=== PATIENT | female | born 1970 | race Caucasian/White ===

== ENCOUNTER → 2019-08-10 10:49 | Outpatient (BNVA) | payer MEDICAID, SELFPAY | PROVIDERS: Family Provider Family Medicine; PCP Family Medicine; Visit Provider Emergency Medicine | DX: E03.9 Hypothyroidism, unspecified (principal); M54.2 Cervicalgia; S09.90XA Unspecified injury of head, initial encounter; G44.329 Chronic post-traumatic headache, not intractable; S19.80XA Other specified injuries of unspecified part of neck, initial encounter; G89.29 Other chronic pain | CPT/HCPCS: 84443 ==

== ENCOUNTER 2019-08-15 10:54 | Emergency (ER) | payer MEDICAID, SELFPAY ==
[2019-08-15 11:51] VITALS: BP 123/77; PULSE 89; RESP 16; TEMP 36.5; O2SAT 96; BMI 25.2
--- NOTE | 2019-08-15 13:37 | PC.PHAR ---
pt states she is not taking montelukast or trazodone but the pharmacy filled on 08/12/2019.
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
[2019-08-15 14:54] VITALS: BP 129/72; PULSE 75; RESP 17; O2SAT 96
== END 2019-08-15 15:01 | disposition home or self-care (01) ==
PROVIDERS: Emergency Provider Physician Assistant; Family Provider Family Medicine; PCP Family Medicine
DX: M54.2 Cervicalgia (principal); G89.29 Other chronic pain; E03.9 Hypothyroidism, unspecified; F17.210 Nicotine dependence, cigarettes, uncomplicated; R40.2412 Glasgow coma scale score 13-15, at arrival to emergency department
CPT/HCPCS: 72040; 99281; 99282

== ENCOUNTER 2019-08-22 12:47 | Outpatient (CLI) | payer MEDICAID, SELFPAY ==
--- NOTE | 2019-08-22 13:00 | CT_ITS ---
WS: [id number] CT HEAD TECHNIQUE: Noncontrast CT of the head obtained from the skullbase to the vertex. CLINICAL INFORMATION: head trauma COMPARISON: None. DLP: 992.[address] scans at [facility] use at least one of these dose optimization techniques: automat ed exposure control; mA and/or kV adjustment per patient size (includes targeted exams where dose is matched to clinical indication); or iterative reconstruction. FINDINGS: No evidence of intracranial hemorrhage or mass effect. Ventricular system and basal cisterns are harris nt. No extra-axial fluid collections. No evidence of mass or mass effect. Normal latham-white different iation. Mild mucosal thickening paranasal sinuses. Mastoid air cells well aerated. CT/CT head wo con* [id number] IMPRESSION: 1. No evidence of intracranial hemorrhage or mass effect. 2. Normal latham-white differentiation. 3. Mild mucosal thickening with partial opacification of the ethmoid air cells . Mucosal thickening right sphenoid sinus.
--- NOTE | 2019-08-22 13:15 | CT_ITS ---
WS: [id number] CT CERVICAL SPINE TECHNIQUE: Noncontrast CT of the cervical spine with coronal and sagittal reformatted images. CLINICAL INFORMATION: neck pain and headaches COMPARISON: None. DLP: 1262.[address] scans at [facility] use at least one of these dose optimization techniques: automat ed exposure control; mA and/or kV adjustment per patient size (includes targeted exams where dose is matched to clinical indication); or iterative reconstruction. FINDINGS: Straightening of the normal cervical lordosis. Moderate spondylitic changes. Disc osteophyte complexe s worse at C5-C7 with endplate ridging. No visualized fractures. C2-C3: Mild osteophytic ridging. Mild left and no significant right foraminal narrowing. Mild facet a rthropathy. C3-C4: Mild facet arthropathy. Spinal canal and foramen are patent. C4-C5: Mild disc osteophyte complex with endplate ridging. Mild left and no significant right foramin al narrowing. Mild facet arthropathy. Spinal canal is patent. C5-C6: Disc osteophyte complex with endplate ridging. Moderate central canal stenosis. Severe left an d moderate right bony foraminal narrowing. Mild facet arthropathy. C6-C7: Disc osteophyte complex with endplate ridging. Severe left and mild right bony foraminal narro wing. Moderate central canal stenosis. C7-T1: No significant disc bulging. Spinal canal and foramen are patent. Visualized posterior nasopharynx: Normal. Prevertebral soft tissues: Normal. CT/CT cervical spin wo con* [id number] IMPRESSION: 1. Straightening of the normal cervical lordosis with mild spondylitic changes . Disc osteophyte ridging at C5-C7. 2. No acute fractures. 3. Mild to moderate central canal stenosis C5-C6 and C6-C7 due to disc osteoph yte complexes. 4. Severe left C5-C6 and left C6-C7 bony foraminal narrowing.
== END 2019-08-22 12:48 | disposition home or self-care (01) ==
LOC: RADWPI 12:52
PROVIDERS: Family Provider Family Medicine; PCP Family Medicine; Visit Provider Emergency Medicine
DX: G44.329 Chronic post-traumatic headache, not intractable (principal); S09.90XA Unspecified injury of head, initial encounter; X58.XXXA Exposure to other specified factors, initial encounter; M54.2 Cervicalgia; M48.02 Spinal stenosis, cervical region
CPT/HCPCS: 70450; 72125

== ENCOUNTER → 2019-08-31 09:56 | Outpatient (BNVA) | payer MEDICAID, SELFPAY | PROVIDERS: Family Provider Family Medicine; PCP Family Medicine; Visit Provider Otolaryngology | DX: J34.2 Deviated nasal septum (principal); J34.3 Hypertrophy of nasal turbinates; J32.9 Chronic sinusitis, unspecified; R51 Headache; F17.210 Nicotine dependence, cigarettes, uncomplicated | CPT/HCPCS: 99203; 99214 ==

== ENCOUNTER → 2019-09-12 10:05 | Outpatient (BNVA) | payer MEDICAID, SELFPAY | PROVIDERS: Family Provider Family Medicine; PCP Family Medicine; Visit Provider Nurse Practitioner Psychiatric/Mental Health | DX: F31.5 Bipolar disorder, current episode depressed, severe, with psychotic features (principal); F43.12 Post-traumatic stress disorder, chronic; F41.1 Generalized anxiety disorder; F12.20 Cannabis dependence, uncomplicated; F17.210 Nicotine dependence, cigarettes, uncomplicated | CPT/HCPCS: 99214 ==

== ENCOUNTER → 2019-11-29 10:44 | Outpatient (BNVA) | payer MEDICAID, SELFPAY | PROVIDERS: Family Provider Family Medicine; PCP Family Medicine; Visit Provider Family Medicine | DX: E03.9 Hypothyroidism, unspecified (principal); N95.1 Menopausal and female climacteric states; F31.5 Bipolar disorder, current episode depressed, severe, with psychotic features; Z13.220 Encounter for screening for lipoid disorders; Z13.6 Encounter for screening for cardiovascular disorders | CPT/HCPCS: 80053; 80061; 83001; 83002; 84439; 84443; 84481; 85025 ==

== ENCOUNTER 2020-01-10 07:57 | Outpatient (CLI) | payer MEDICAID, SELFPAY ==
--- NOTE | 2020-01-10 13:42 | PFTS_ITS ---
Date of Study:01/10/20 Date of Dictation: MECHANICS: Forced vital capacity (FVC) is reduced. Forced expiratory volume in one second (FEV1) is reduced. FEV1/FVC is reduced. FLOW VOLUME LOOP: Reduced flow at all lung volumes with scooping. LUNG VOLUMES: Total lung capacity and residual volume are not measured. DIFFUSING CAPACITY FOR CARBON MONOXIDE: Normal. INTERPRETATION: The pulmonary function tests are consistent with severe obstruction. Component of restriction cannot be ruled out in the absence of lung volume measurements. Gas exchange (DLCO) is normal. MTDD
== END 2020-01-10 07:58 | disposition home or self-care (01) ==
PROVIDERS: PCP Family Medicine; Visit Provider Internal Medicine Critical Care Medicine
DX: J44.9 Chronic obstructive pulmonary disease, unspecified (principal)
CPT/HCPCS: 94060; 94726; 94729; J7611

== ENCOUNTER 2020-01-24 07:50 | Outpatient (CLI) | payer MEDICAID, SELFPAY ==
--- NOTE | 2020-01-24 08:15 | XR_ITS ---
WS: [id number] CERVICAL SPINE FLEXION EXTENSION TECHNIQUE: 3 views of the cervical spine: lateral neutral, flexion and extension views. CLINICAL INFORMATION: Neck pain COMPARISON: None. FINDINGS: Straightening of the normal cervical lordosis. Mild spondylitic changes. Normal C1-C2 articulation. D isc space narrowing worse at C5-C6 and C6-C7. No significant instability on flexion/extension. Livestock Trucker ior elements are normal. No other significant findings. XR/XR cervical spine fl/ex [id number] IMPRESSION: Mild spondylitic changes. No significant instability on flexion-extension
--- NOTE | 2020-01-24 08:45 | MR_ITS ---
WS: [id number] MRI CERVICAL SPINE NONCONTRAST TECHNIQUE: Sagittal T1, T2 and STIR imaging. Axial T2, gradient, and fiesta imaging. CLINICAL INFORMATION: Neck pain COMPARISON: CT August 22, 2019 FINDINGS: Straightening of the normal cervical lordosis. Disc osteophyte complexes worse at C4-C6. Cord signal is normal. Slight retrolisthesis C4 on C5 and C5 on C6. C2-C3: Mild left foraminal narrowing. Spinal canal and right foramen are patent. Mild facet arthropat hy. C3-C4: No significant disc bulging. Mild facet arthropathy. Spinal canal and foramen are patent. C4-C5: Disc osteophyte complex eccentric to the left with a shallow left pericentral protrusion. Mild central canal stenosis with slight contact of the cervical cord. Mild to moderate left foraminal mark rowing. Mild facet arthropathy. C5-C6: Disc osteophyte complex with endplate ridging. Mild to moderate central canal stenosis and sli ght contact of the cervical cord. Moderate left greater than right bony foraminal narrowing. C6-C7: Slight retrolisthesis. Disc osteophyte complex with moderate central canal stenosis and imping ement on the cervical cord. Moderate to severe bilateral bony foraminal narrowing. C7-T1: Mild left and no significant right foraminal narrowing. Spinal canal is patent. T1-T2: Normal. Visualized brain stem structures: Normal. Prevertebral soft tissues: Normal. MR/MR cervical spin wo con* [id number] IMPRESSION: 1. Straightening of the normal cervical lordosis with slight retrolisthesis C4 on C5 C5 on C6 and C6 on C7. 2. Mild central canal stenosis C4-C5, mild to moderate C5-C6, and moderate at C6-C7 with indentation and slight flattening of the cervical cord at C6-C7. Cor d signal remains normal. 3. Multilevel moderate to severe bony foraminal narrowing worse at bilateral C 5-6 worse in the left and bilateral C6-7. 4. Mild to moderate left C4-5 bony foraminal narrowing.
== END 2020-01-24 07:51 | disposition home or self-care (01) ==
LOC: RADWPI 07:53
PROVIDERS: Family Provider Family Medicine; PCP Family Medicine; Visit Provider Licensed Practical Nurse
DX: M54.2 Cervicalgia (principal); M48.02 Spinal stenosis, cervical region; M47.892 Other spondylosis, cervical region
CPT/HCPCS: 72040; 72141

== ENCOUNTER → 2020-01-29 08:01 | Outpatient (BNVA) | payer MEDICAID, SELFPAY | PROVIDERS: Family Provider Family Medicine; PCP Family Medicine; Visit Provider Licensed Practical Nurse | DX: M50.020 Cervical disc disorder with myelopathy, mid-cervical region, unspecified level (principal); G89.29 Other chronic pain; M48.02 Spinal stenosis, cervical region; M43.10 Spondylolisthesis, site unspecified; M54.2 Cervicalgia; F17.210 Nicotine dependence, cigarettes, uncomplicated | CPT/HCPCS: 99213 ==

== ENCOUNTER 2020-02-05 08:14 | Outpatient (RCR) | payer MEDICAID, SELFPAY | END 2020-02-18 23:59 | disposition home or self-care (01) | LOC: MPT 08:14 | PROVIDERS: Family Provider Family Medicine; PCP Family Medicine; Referring Provider Licensed Practical Nurse; Visit Provider Licensed Practical Nurse | DX: G89.29 Other chronic pain (principal); M54.2 Cervicalgia | CPT/HCPCS: 97110; 97161; 97530 ==

== ENCOUNTER → 2020-02-13 08:37 | Outpatient (BNVA) | payer MEDICAID, SELFPAY | PROVIDERS: Family Provider Family Medicine; PCP Family Medicine; Referring Provider Licensed Practical Nurse; Visit Provider Anesthesiology Pain Medicine | DX: M79.18 Myalgia, other site (principal); M51.17 Intervertebral disc disorders with radiculopathy, lumbosacral region; G89.29 Other chronic pain; M48.02 Spinal stenosis, cervical region; M50.020 Cervical disc disorder with myelopathy, mid-cervical region, unspecified level; M47.812 Spondylosis without myelopathy or radiculopathy, cervical region; F17.210 Nicotine dependence, cigarettes, uncomplicated | CPT/HCPCS: 20553; 99205; J1030; J3490 ==

== ENCOUNTER 2020-02-19 06:00 | Outpatient (RCR) | payer MEDICAID, SELFPAY | END 2020-03-19 23:59 | disposition home or self-care (01) | LOC: MPT 06:00 | PROVIDERS: PCP Family Medicine; Referring Provider Licensed Practical Nurse; Visit Provider Licensed Practical Nurse | DX: G89.29 Other chronic pain (principal); M54.2 Cervicalgia | CPT/HCPCS: 97110; 97530 ==

== ENCOUNTER → 2020-03-18 10:07 | Outpatient (BNVA) | payer MEDICAID, SELFPAY | PROVIDERS: PCP Family Medicine; Visit Provider Nurse Practitioner Family | DX: R53.83 Other fatigue (principal); N92.6 Irregular menstruation, unspecified | CPT/HCPCS: 81025; 84443 ==

== ENCOUNTER 2020-03-20 06:00 | Outpatient (RCR) | payer MEDICAID, SELFPAY | END 2020-04-19 23:59 | disposition home or self-care (01) | LOC: MPT 06:00 | PROVIDERS: PCP Family Medicine; Referring Provider Licensed Practical Nurse; Visit Provider Licensed Practical Nurse | DX: M54.2 Cervicalgia (principal); G89.29 Other chronic pain | CPT/HCPCS: 97110; 97530 ==

== ENCOUNTER → 2020-03-26 11:02 | Outpatient (BNVA) | payer MEDICAID, SELFPAY | PROVIDERS: PCP Family Medicine; Visit Provider Licensed Practical Nurse | DX: M48.02 Spinal stenosis, cervical region (principal); M50.020 Cervical disc disorder with myelopathy, mid-cervical region, unspecified level; M43.10 Spondylolisthesis, site unspecified | CPT/HCPCS: 99213 ==

== ENCOUNTER 2020-04-20 06:00 | Outpatient (RCR) | payer MEDICAID, SELFPAY | END 2020-05-19 23:59 | disposition home or self-care (01) | LOC: MPT 06:00 | PROVIDERS: PCP Family Medicine; Referring Provider Licensed Practical Nurse; Visit Provider Licensed Practical Nurse | DX: M54.2 Cervicalgia (principal); G89.29 Other chronic pain | CPT/HCPCS: 97110; 97530 ==

== ENCOUNTER → 2020-06-16 14:15 | Outpatient (BNVA) | payer MEDICAID, SELFPAY | PROVIDERS: PCP Family Medicine; Visit Provider Family Medicine | DX: M48.02 Spinal stenosis, cervical region (principal); E03.9 Hypothyroidism, unspecified; R00.0 Tachycardia, unspecified; G47.10 Hypersomnia, unspecified; G47.01 Insomnia due to medical condition; N95.1 Menopausal and female climacteric states; J32.9 Chronic sinusitis, unspecified; F41.1 Generalized anxiety disorder; G99.2 Myelopathy in diseases classified elsewhere; Z12.31 Encounter for screening mammogram for malignant neoplasm of breast; N64.4 Mastodynia; R59.0 Localized enlarged lymph nodes | CPT/HCPCS: 80053; 83735; 84439; 84443; 84481; 85025 ==

== ENCOUNTER 2020-07-15 20:00 | Outpatient (CLI) | payer MEDICAID, SELFPAY | END 2020-07-15 20:01 | disposition home or self-care (01) | LOC: SLEEP 07-16 11:05 | PROVIDERS: PCP Family Medicine; Visit Provider Family Medicine | DX: G47.10 Hypersomnia, unspecified (principal); R06.83 Snoring | CPT/HCPCS: 95810 ==

== ENCOUNTER → 2020-10-01 15:04 | Outpatient (BNVA) | payer MEDICAID, SELFPAY | PROVIDERS: PCP Family Medicine; Visit Provider Family Medicine | DX: R00.0 Tachycardia, unspecified (principal); R25.2 Cramp and spasm; F17.210 Nicotine dependence, cigarettes, uncomplicated; F41.1 Generalized anxiety disorder; E03.9 Hypothyroidism, unspecified; M48.02 Spinal stenosis, cervical region; J32.9 Chronic sinusitis, unspecified; B96.89 Other specified bacterial agents as the cause of diseases classified elsewhere; F31.5 Bipolar disorder, current episode depressed, severe, with psychotic features; G47.01 Insomnia due to medical condition; L30.1 Dyshidrosis [pompholyx]; R53.83 Other fatigue; J44.9 Chronic obstructive pulmonary disease, unspecified; M47.12 Other spondylosis with myelopathy, cervical region; M47.22 Other spondylosis with radiculopathy, cervical region | CPT/HCPCS: 80053; 82607; 82652; 83735; 84439; 84443; 84481; 85025 ==

== ENCOUNTER → 2021-04-01 10:41 | Outpatient (BNVA) | payer MEDICAID, SELFPAY | PROVIDERS: PCP Family Medicine; Visit Provider Family Medicine | DX: F41.1 Generalized anxiety disorder (principal); M47.12 Other spondylosis with myelopathy, cervical region; M47.22 Other spondylosis with radiculopathy, cervical region; M48.02 Spinal stenosis, cervical region; G89.29 Other chronic pain; E03.9 Hypothyroidism, unspecified; R42 Dizziness and giddiness; F17.210 Nicotine dependence, cigarettes, uncomplicated | CPT/HCPCS: 84439; 84443; 84481 ==

== ENCOUNTER 2021-04-23 11:38 | Emergency (ER) | payer MEDICAID, SELFPAY ==
[2021-04-23 11:47] VITALS: BP 145/80; PULSE 83; RESP 16; TEMP 36.7; O2SAT 97
--- NOTE | 2021-04-23 11:53 | W.ED.BACK ---
HPI - Back Pain/Injury General: Chief Complaint: Back Pain/Injury Stated Complaint: SEVERE PAIN IN NECK/HEAD Time Seen by Provider: 04/23/21 11:53 History of Present Illness: HPI Narrative: 50 yo female presents emergency room with complaint of head and neck pain. She had an MRI a year ago opted not to do surgery there is some foraminal stenosis at C5 667 according to the old notes. She had some moderate central canal stenosis. Most of her pain now is radiating up her neck and into the base of her skull. She does report some occasional numbness and tingling into her hands. She takes gabapentin that makes the radiating pain better. Patient was verbally aggressive on arrival here with the triage staff demanding pain medication she had calm down some of the time had seen her and were able to have a normal conversation reviewing her history. She is scheduled next week to see Dr. Promise herbert for reevaluation has not had any imaging since imaging last year. Difficulty with gait or walking no weakness in the lower extremities. [facility] ED PFSH: Medical History Bipolar I disorder, moderate, current or most recent episode depressed, with psychotic features Cannabis dependence, continuous Cervical disc disorder with myelopathy of mid-cervical region Chronic neck pain Chronic post-traumatic stress disorder Chronic sinusitis Deviated septum Generalized anxiety disorder Head pain, chronic Headache Hypothyroidism (acquired) Nasal turbinate hypertrophy Neck pain, chronic Nicotine dependence, cigarettes, uncomplicated Spondylolisthesis, acquired Stage 2 moderate COPD by GOLD classification 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 [place], [place] Lumbar decompression S/P cholecystectomy S/P tonsillectomy Family History Father Cancer Schizophrenia Other COPD (chronic obstructive pulmonary disease) Social History Smoking and tobacco status: current every day smoker cigarettes Packs smoked per day: 0.75 Years cigarettes smoked: 25 [ Other cigarette details: 1 PPD x 25 Year Hx ] Smoking risk assessment/counseling performed?: No Alcohol intake: never Counseling given: No Counseling given: No Lives independently: Yes Household members: significant other and family Marital status: Current occupational status: unemployed History of recent travel: No Current gender identity: Female Female Reproductive History: Date of last menstrual period: 02/13/20 Spontaneous abortions: No Course Vital Signs: Vital signs: Vital Signs Temperature 98.0 F 04/23/21 11:47 Pulse Rate 83 04/23/21 11:47 Respiratory Rate 16 04/23/21 11:47 Blood Pressure 145/80 04/23/21 11:47 Pulse Oximetry 97 04/23/21 11:47 Discharge Plan Discharge Prescriptions: No Action albuterol sulfate [ProAir HFA] 90 mcg/actuation HFA aerosol inhaler 2 puff INHALATION Q6H PRNRF: 0 albuterol sulfate 2.5 mg /3 mL (0.083 %) solution for nebulization 2.5 mg INHALATION Q4H PRNRF: 0 triamcinolone acetonide 0.5 % ointment 1 applic topical BID PRN (Reason: rash) Qty: 15 RF: 2 bupropion HCl [Wellbutrin SR] 100 mg tablet sustained-release 12 hr 100 mg PO QAM 30 Days Qty: 30 RF: 2 naproxen [EC-Naproxen] 500 mg tablet,delayed release (DR/EC) 500 mg PO BID RF: 0 gabapentin 300 mg capsule 300 mg PO TID 30 Days Qty: 90 RF: 2 baclofen 20 mg tablet 20 mg PO TID 30 Days Qty: 90 RF: 0 azelastine 137 mcg (0.1 %) aerosol,spray 1 spray intranasal BID Qty: 30 RF: 3 Stiolto Respimat 2.5-2.5 mcg/actuation mist 2 puff INHALATION DAILY Qty: 4 RF: 3 levothyroxine 100 mcg tablet 100 mcg PO DAILY 90 Days Qty: 90 RF: 1 Coding Level of Care Code ED Gallery Intern for Scot Hurt
--- NOTE | 2021-04-23 12:08 | ED_ITS ---
HPI - Neck Pain/Injury General: Chief Complaint: Back Pain/Injury Stated Complaint: SEVERE PAIN IN NECK/HEAD Time Seen by Provider: 04/23/21 11:53 History of Present Illness: HPI Narrative: 50 yo female presents emergency room with complaint of head and neck pain. She had an MRI a year ago opted not to do surgery there is some foraminal stenosis at C5 667 according to the old notes. She had some moderate central canal stenosis. Most of her pain now is radiating up her neck and into the base of her skull. She does report some occasional numbness and tingling into her hands. She takes gabapentin that makes the radiating pain better. Patient was verbally aggressive on arrival here with the triage staff demanding pain medication she had calm down some of the time had seen her and were able to have a normal conversation reviewing her history. She is scheduled next week to see Dr. Promise herbert for reevaluation has not had any imaging since imaging last year. Difficulty with gait or walking no weakness in the lower extremities. Patient has not had any recent trauma or falls. No previous surgeries to her neck or spine. During course of conversation patient moves neck flexion extension side bending rotation without any noted exacerbation of pain. MD complaint: neck pain Onset (ago): month(s) Radiation: head, occiput, right upper extremity and left upper extremity Severity: severe and similar to prior neck pain Quality: sharp Duration: constant Relieving factors: none Exacerbating factors: none Associated symptoms: Denies nausea Review of Systems Const: Denies: fever(s), chills, body aches, change in appetite, fatigue or malaise ENMT: Denies: throat pain, ear or mastoid pain, nasal discharge or nasal congestion Card: Denies: chest pain, edema, dyspnea on exertion or orthopnea Resp: Denies: dyspnea, productive cough or non-productive cough GI: Denies: abdominal pain, nausea, vomiting, hematemesis, coffee ground emesis, diarrhea, constipation, bloating, hematochezia or melena : Denies: flank pain, difficulty voiding, dysuria, urinary frequency or urinary urgency Skin/Breast: Denies: rash or pruritus PFS ED PFSH: Medical History Bipolar I disorder, moderate, current or most recent episode depressed, with psychotic features Cannabis dependence, continuous Cervical disc disorder with myelopathy of mid-cervical region Chronic neck pain Chronic post-traumatic stress disorder Chronic sinusitis Deviated septum Generalized anxiety disorder Head pain, chronic Headache Hypothyroidism (acquired) Nasal turbinate hypertrophy Neck pain, chronic Nicotine dependence, cigarettes, uncomplicated Spondylolisthesis, acquired Stage 2 moderate COPD by GOLD classification 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 [place], [place] Lumbar decompression S/P cholecystectomy S/P tonsillectomy Family History Father Cancer Schizophrenia Other COPD (chronic obstructive pulmonary disease) Social History Smoking and tobacco status: current every day smoker cigarettes Packs smoked per day: 0.75 Years cigarettes smoked: 25 [ Other cigarette details: 1 PPD x 25 Year Hx ] Smoking risk assessment/counseling performed?: No Alcohol intake: never Counseling given: No Counseling given: No Lives independently: Yes Household members: significant other and family Marital status: Current occupational status: unemployed History of recent travel: No Current gender identity: Female Female Reproductive History: Date of last menstrual period: 02/13/20 Spontaneous abortions: No Physical Exam Const: COMMON NORMALS: no acute distress GENERAL APPEARANCE: cooperative and comfortable ORIENTATION/CONSCIOUSNESS: Yes awake, Yes oriented to person, Yes oriented to place and Yes oriented to time HENMT: COMMON NORMALS: normocephalic, atraumatic and hearing grossly normal bilaterally HEAD & SCALP: normocephalic and atraumatic Neck/C-Spine: COMMON NORMALS: full ROM, no lymphadenopathy and no JVD Lymph: LYMPHATIC: no lymphadenopathy noted and no lymphedema noted Resp: COMMON NORMALS: normal respiratory effort, No retractions, No use of accessory muscles and clear to auscultation bilaterally AUSCULTATION: clear to auscultation bilaterally Cardio: COMMON NORMALS: no JVD, regular rate, regular rhythm and No murmurs present (Cardio) RATE: regular rate RHYTHM: regular rhythm Extremity: COMMON NORMALS: normal to inspection, capillary refill normal, no clubbing, cyanosis or edema, no calf tenderness and no pedal edema Neuro: SENSORIUM/ORIENTATION: Yes oriented to person, Yes oriented to place and Yes oriented to time OTHER: Due to reflex to the upper extremities +2/4 biceps and triceps was 104 at the brachial radialis neurovascular intact and sensation normal. Skin: COMMON NORMALS: no rashes or lesions noted GENERAL SKIN EXAM: no rashes or lesions noted Course Vital Signs: Vital signs: Vital Signs Temperature 98.0 F 04/23/21 11:47 Pulse Rate 89 04/23/21 12:57 Respiratory Rate 18 04/23/21 12:23 Blood Pressure 128/87 04/23/21 12:57 Pulse Oximetry 99 04/23/21 12:57 MDM - Neck Pain/Injury MDM Narrative: Medical decision making narrative: Patient had good relief of symptoms with pain medications given. We will schedule outpatient MRI through case management. Keep appoint with Dr. Virgen as scheduled Discharge Plan Discharge Patient Disposition: Home Clinical Impression: Cervical disc disorder with myelopathy of mid-cervical region Condition: Stable Prescriptions: No Action albuterol sulfate [ProAir HFA] 90 mcg/actuation HFA aerosol inhaler 2 puff INHALATION Q6H PRNRF: 0 albuterol sulfate 2.5 mg /3 mL (0.083 %) solution for nebulization 2.5 mg INHALATION Q4H PRNRF: 0 triamcinolone acetonide 0.5 % ointment 1 applic topical BID PRN (Reason: rash) Qty: 15 RF: 2 bupropion HCl [Wellbutrin SR] 100 mg tablet sustained-release 12 hr 100 mg PO QAM 30 Days Qty: 30 RF: 2 hydrocodone-acetaminophen 5-325 mg tablet 1 tab PO Q4H PRN (Reason: pain) 7 Days Qty: 40 RF: 0 Stiolto Respimat 2.5-2.5 mcg/actuation mist 2 puff INHALATION DAILY Qty: 4 RF: 3 levothyroxine 100 mcg tablet 100 mcg PO DAILY 90 Days Qty: 90 RF: 1 Discharge Orders: Discharge ED (Routine); Ordered 04/23/21 Ordered By: Justin Whitfield Referrals: Jerri Haider MD [Primary Care Provider] - Discharge Diet: Usual diet Discharge Activity: Increase activity as tolerated Patient Instructions: Opioid Safety Activity Restrictions/Additional Instructions: Avoid heavy lifting (greater than 10 pounds), do not work at or above shoulder level. Keep appointment with Dr. Virgen as previously scheduled. Case management will call and try to make arrangements for you to have a repeat MRI of your neck. Coding Level of Care Code ED Vice President Fixed Income for Chg Fwd Exam Comprehensive
[2021-04-23] MEDS: LORazepam 2 mg/mL INJ 1 mL IVP (12:16)
[2021-04-23] MEDS: dexamethasone 10 mg/mL INJ IVP (12:17)
[2021-04-23 12:18] VITALS: RESP 18
[2021-04-23] MEDS: morphine 4 mg/mL SDV 1 mL IVP (12:18)
[2021-04-23] MEDS: sodium chloride 0.9% 1,000 ML 999 ML IV (12:19)
[2021-04-23] MEDS: promethazine 25 mg/mL SDV 1 mL 12.5 MG IM (12:21)
[2021-04-23 12:23] VITALS: BP 112/71; PULSE 78; RESP 18; O2SAT 98
[2021-04-23 12:57] VITALS: BP 128/87; PULSE 89; O2SAT 99
== END 2021-04-23 12:56 | disposition home or self-care (01) ==
PROVIDERS: Emergency Provider Family Medicine; PCP Family Medicine
DX: F17.210 Nicotine dependence, cigarettes, uncomplicated (principal); M50.020 Cervical disc disorder with myelopathy, mid-cervical region, unspecified level; Z79.891 Long term (current) use of opiate analgesic; F33.9 Major depressive disorder, recurrent, unspecified
CPT/HCPCS: 96361; 96372; 96374; 96375; 99284; J1100; J2060; J2270; J2550; J7030

== ENCOUNTER → 2021-04-28 12:51 | Outpatient (BNVA) | payer MEDICAID, SELFPAY | PROVIDERS: PCP Family Medicine; Visit Provider Orthopaedic Surgery | DX: M50.322 Other cervical disc degeneration at C5-C6 level (principal); M50.323 Other cervical disc degeneration at C6-C7 level | CPT/HCPCS: 72050 ==

== ENCOUNTER 2021-04-28 13:22 | Emergency (ER) | payer MEDICAID, SELFPAY ==
[2021-04-28 14:08] VITALS: BP 117/80; PULSE 81; RESP 14; TEMP 36.4; O2SAT 96; BMI 21.1
--- NOTE | 2021-04-28 14:26 | ED_ITS ---
HPI - Neck Pain/Injury General: Chief Complaint: Neck Pain/Injury Stated Complaint: Neck Pain Time Seen by Provider: 04/28/21 14:16 Source: patient and family Mode of arrival: ambulatory Limitations: no limitations History of Present Illness: HPI Narrative: Patient is a 50-year-old female who presents to ED today with a complaint of severe neck pain. She presents with her /significant other. Patient was seen here at our facility on 04/23 for identical symptoms. She saw her primary care provider yesterday. She also was evaluated by Dr. Virgen just prior to arrival. According to Dr. Virgen's note plan will be for ACDF at C 09/22, 10/23, and 11/24 in early May. Individual with her states Dr. Virgen wrote her for hydrocodone today that she hasn't filled but tells me these aren't going to work for her pain. She has been treated with steroids and muscle relaxers and tell me these don't work either. States she was placed on Gabapentin and it worked for three days but then stopped working so she discontinued. Individual with her states she has been having anxiety which is causing her pain to worsen. Patient tells me at one point she was on lorazepam but states she got fired from taking this medication. MD complaint: neck pain Onset (ago): year(s) Severity: severe Associated symptoms: Denies headache(s) Review of Systems Musc: Reports: neck pain Neuro: Denies: headache(s) Psych: Reports: anxiety PFS ED PFSH: Medical History Bipolar I disorder, moderate, current or most recent episode depressed, with psychotic features Cannabis dependence, continuous Cervical disc disorder with myelopathy of mid-cervical region Chronic neck pain Chronic post-traumatic stress disorder Chronic sinusitis Deviated septum Generalized anxiety disorder Head pain, chronic Headache Hypothyroidism (acquired) Nasal turbinate hypertrophy Neck pain, chronic Nicotine dependence, cigarettes, uncomplicated Spondylolisthesis, acquired Stage 2 moderate COPD by GOLD classification 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 [place], [place] Lumbar decompression S/P cholecystectomy S/P tonsillectomy Family History Father Cancer Schizophrenia Other COPD (chronic obstructive pulmonary disease) Social History Smoking and tobacco status: current every day smoker cigarettes Packs smoked per day: 0.75 Years cigarettes smoked: 25 [ Other cigarette details: 1 PPD x 25 Year Hx ] Smoking risk assessment/counseling performed?: No Alcohol intake: never Counseling given: No Counseling given: No Lives independently: Yes Household members: significant other and family Marital status: Current occupational status: unemployed History of recent travel: No Current gender identity: Female Female Reproductive History: Date of last menstrual period: 02/13/20 Spontaneous abortions: No Physical Exam Const: COMMON NORMALS: no acute distress, no limitations and alert OTHER: agitated Neck/C-Spine: OTHER: pt is agitated currently; she just received a full physical exam/neuro assessment from spinal surgeon 1-2 hours ago; this was not completed now Neuro: SENSORIUM/ORIENTATION: Yes alert Course Vital Signs: Vital signs: Vital Signs Temperature 97.5 F L 04/28/21 14:08 Pulse Rate 81 04/28/21 14:08 Respiratory Rate 14 04/28/21 14:08 Blood Pressure 117/80 04/28/21 14:08 Pulse Oximetry 96 04/28/21 14:08 MDM - Neck Pain/Injury MDM Narrative: Medical decision making narrative: I told patient I would not be prescribing her anything stronger than the prescription for hydrocodone that she already got from Dr. Virgen. Discussed other therapy options including increasing her gabapentin. I told her I would not place her back on lorazepam especially if she was going to be taking opiate pain medications as taking these together are contraindicated. I had ordered her Tramadol, Vistaril, and Norflex here but shortly after my assessment she became irate and security was called and she ended up eloping from the ED. Discharge Plan Discharge Patient Disposition: Left Against Medical Advice Prescriptions: No Action albuterol sulfate [ProAir HFA] 90 mcg/actuation HFA aerosol inhaler 2 puff INHALATION Q6H PRNRF: 0 albuterol sulfate 2.5 mg /3 mL (0.083 %) solution for nebulization 2.5 mg INHALATION Q4H PRNRF: 0 triamcinolone acetonide 0.5 % ointment 1 applic topical BID PRN (Reason: rash) Qty: 15 RF: 2 bupropion HCl [Wellbutrin SR] 100 mg tablet sustained-release 12 hr 100 mg PO QAM 30 Days Qty: 30 RF: 2 hydrocodone-acetaminophen 5-325 mg tablet 1 tab PO Q4H PRN (Reason: pain) 7 Days Qty: 40 RF: 0 Stiolto Respimat 2.5-2.5 mcg/actuation mist 2 puff INHALATION DAILY Qty: 4 RF: 3 levothyroxine 100 mcg tablet 100 mcg PO DAILY 90 Days Qty: 90 RF: 1 Referrals: Jerri Haider MD [Primary Care Provider] - Coding Level of Care Code ED Net Making Supervisor for Scot Hurt
== END 2021-04-28 15:10 | disposition left against medical advice (07) ==
PROVIDERS: Emergency Provider Physician Assistant; PCP Family Medicine
DX: F31.9 Bipolar disorder, unspecified (principal); Z53.29 Procedure and treatment not carried out because of patient's decision for other reasons; Z79.891 Long term (current) use of opiate analgesic; F17.210 Nicotine dependence, cigarettes, uncomplicated
CPT/HCPCS: 99281

== ENCOUNTER → 2021-07-15 17:11 | Outpatient (BNVA) | payer MEDICAID, SELFPAY | PROVIDERS: PCP Family Medicine; Visit Provider Family Medicine | DX: E03.9 Hypothyroidism, unspecified (principal); N95.1 Menopausal and female climacteric states; R23.2 Flushing; Z13.1 Encounter for screening for diabetes mellitus; Z13.220 Encounter for screening for lipoid disorders; Z13.6 Encounter for screening for cardiovascular disorders | CPT/HCPCS: 80053; 80061; 83001; 83002; 84439; 84443; 84481; 85025 ==

== ENCOUNTER → 2021-08-25 14:45 | Outpatient (BNVA) | payer MEDICAID, SELFPAY | PROVIDERS: PCP Family Medicine; Visit Provider Internal Medicine | DX: E89.0 Postprocedural hypothyroidism (principal); R61 Generalized hyperhidrosis; N95.1 Menopausal and female climacteric states; F17.210 Nicotine dependence, cigarettes, uncomplicated | CPT/HCPCS: 99204 ==

== ENCOUNTER 2021-11-18 11:35 | Outpatient (CLI) | payer MEDICAID, SELFPAY ==
--- NOTE | 2021-11-18 | XR_ITS ---
WS: [id number] CHEST 2 VIEWS HISTORY: COUGH COMPARISON: 09/23/2017 Lungs: Mild pulmonary hyperexpansion. No mass, nodule or pneumonia. No pleural effusion. Cardiac size: Normal. Mediastinum/Aorta: Normal mediastinum. Bones: Normal. XR/XR chest 2V* [id number] IMPRESSION: Mild emphysema. No pneumonia.
== END 2021-11-18 11:36 | disposition home or self-care (01) ==
LOC: RADOUTREAD 11-23 11:37
PROVIDERS: PCP Family Medicine; Visit Provider Family Medicine
DX: R05.9 Cough, unspecified (principal); J43.9 Emphysema, unspecified
CPT/HCPCS: 71046

== ENCOUNTER → 2021-11-23 10:16 | Outpatient (BNVA) | payer MEDICAID, SELFPAY | PROVIDERS: PCP Family Medicine; Visit Provider Internal Medicine Critical Care Medicine | DX: J44.9 Chronic obstructive pulmonary disease, unspecified (principal); F17.200 Nicotine dependence, unspecified, uncomplicated; F12.20 Cannabis dependence, uncomplicated; E03.8 Other specified hypothyroidism | CPT/HCPCS: 99213 ==

== ENCOUNTER 2021-11-30 15:16 | Emergency (ER) | payer MEDICAID, SELFPAY ==
[2021-11-30 15:31] VITALS: BP 136/79; PULSE 111; RESP 18; TEMP 36.7; O2SAT 95
[2021-11-30 18:51] LABS: Basophils # 0.1 10^3/uL (0.0-0.1); Basophils % 0.6 %; Eosinophils # 0.2 10^3/uL (0.0-0.8); Eosinophils % 1.7 %; Hematocrit 47.3 % (37.0-47.0); Hemoglobin 15.7 g/dL (11.5-15.3); Lymphocytes # 3.3 10^3/uL (0.8-4.8); Lymphocytes % 37.8 %; Mean Corpuscular HGB Conc 33.2 g/dL (30.0-36.0); Mean Corpuscular Hemoglobin 30.1 pg (28.0-34.0); Mean Corpuscular Volume 90.6 fl (81-99); Mean Platelet Volume 8.6 fL (7.4-10.4); Monocytes # 0.8 10^3/uL (0.2-0.9); Monocytes % 8.6 %; Neutrophils # 4.51 10^3/uL (1.8-7.7); Nucleated Red Blood Cells % 0 %; Platelet Count 352 10^3/cmm (130-400); Red Blood Count 5.22 10^6/uL (4.1-5.3); Red Cell Distribution Width 12.8 % (12.1-15.1); White Blood Count 8.8 10^3/uL (4.0-10.0)
--- NOTE | 2021-11-30 18:52 | CTR_ITS ---
PROCEDURE INFORMATION: Exam: CT Abdomen And Pelvis Without Contrast Exam date and time: 11/30/2021 7:16 PM Age: 51 years old Clinical indication: Abdominal pain; Generalized; Patient HX: -hernia protrusion above navel; Additional info: Abd pain TECHNIQUE: Imaging protocol: Computed tomography of the abdomen and pelvis without contrast. Sagittal and coronal reformatted images were created and reviewed. Radiation optimization: All CT scans at this facility use at least one of these dose optimization techniques: automated exposure control; mA and/or kV adjustment per patient size (includes targeted exams where dose is matched to clinical indication); or iterative reconstruction. COMPARISON: CR (CHEST, ) 11/30/2021 7:00 PM RADIATION DOSE METRICS: Total DLP (mGy-cm): 883.85 FINDINGS: Lungs: Visualized lungs are clear. Pleural spaces: No pleural effusion. Heart: Visualized portions of the heart are unremarkable. Liver: The liver is unremarkable. Gallbladder and bile ducts: Patient has had a previous cholecystectomy. Dilatation of the biliary ducts, not unexpected in a patient who has had a prior cholecystectomy. Pancreas: The pancreas is unremarkable. No pancreatic ductal dilatation. Spleen: The spleen is unremarkable. Adrenal glands: The right and left adrenal glands are unremarkable. Kidneys and ureters: The right and left kidneys are unremarkable. The right and left ureters are unremarkable. Stomach and bowel: Fluid within the small bowel and colon without evidence of bowel wall thickening. Appendix: The appendix is visualized and is unremarkable. No findings to suggest acute appendicitis. Intraperitoneal space: No free intraperitoneal air. No ascites. No loculated fluid collections to suggest an abscess. Vasculature: Mild atherosclerotic changes in the visualized arteries. No evidence for aortic aneurysm. Lymph nodes: No lymphadenopathy. Urinary bladder: The bladder is incompletely filled, which can limit evaluation. No focal abnormality in the bladder however. Reproductive: Unremarkable as visualized. Bones/joints: Mild degenerative changes in the visualized spine. Soft tissues: Small fat-containing umbilical hernia. No evidence for strangulation. No acute abnormality in the extra-abdominal soft tissues. CT/CT abdomen pelvis wo con [id number] IMPRESSION: 1. Fluid within the small bowel and colon without evidence of bowel wall thickening. This may reflect viral gastroenteritis in the appropriate clinical situation. 2. Small fat-containing umbilical hernia. No evidence for strangulation. 3. Incidental/nonacute findings are listed in the report.
--- NOTE | 2021-11-30 18:52 | XRR_ITS ---
PROCEDURE INFORMATION: Exam: XR Chest Exam date and time: 11/30/2021 7:00 PM Age: 51 years old Clinical indication: Pain; Chest pressure; Additional info: Cough TECHNIQUE: Imaging protocol: XR of the chest. Views: 1 view. COMPARISON: CR XR chest 2V* [id number] 11/18/2021 2:53 PM FINDINGS: Lungs: Stable mild hyperinflation of the lungs. No focal consolidation. No pulmonary edema. Pleural spaces: No pleural effusion. No pneumothorax. Heart/Mediastinum: The cardiac silhouette and mediastinal contours are unremarkable. Bones/joints: Unremarkable for age. XR/XR chest 1V portable [id number] IMPRESSION: 1. No acute cardiopulmonary process. 2. Incidental/nonacute findings are listed in the report.
--- NOTE | 2021-11-30 18:54 | W.ED.ABDPA2 ---
HPI - Abdominal Pain General: Chief Complaint: Abdominal Pain Stated Complaint: Lower back pain, Spasms Time Seen by Provider: 11/30/21 18:27 Source: patient Mode of arrival: ambulatory Limitations: no limitations History of Present Illness: 51-year-old female states that she has been a longtime smoker states she did quit 2 weeks ago but she has been having a terrible cough. States she coughed so hard today she felt like she had a hernia and did reduce it at home but she been having pain in her abdomen. It is over her incisional scar from her cholecystectomy in her mid abdomen. States the pain is actually improved but still having some pain especially when she coughs states pain sharp in nature rates it a 4 out of 10 she also had some right lower chest pain that is worse when she coughs as well along with palpation. She denies any fevers denies any vomiting or diarrhea. Associated Symptoms: Denies chills, dysuria and fever(s) Related Data: Date of Last Menstrual Period: 02/13/20 Review of Systems Const: Denies: fever(s), chills, body aches or change in appetite Eyes: Denies: blurry vision or eye discomfort ENMT: Denies: throat pain or dental pain Card: Denies: chest pain Resp: Denies: dyspnea GI: Reports: abdominal pain : Denies: dysuria Musc: Denies: neck pain or back pain Skin/Breast: Denies: rash Neuro: Denies: headache(s) Psych: Denies: depression Romario/Lymph: Denies: easy bruising All/Imm: Denies: urticaria PFS ED PFSH: Medical History (Updated 11/30/21 @ 20:29 by Mansi Lowe MD) Bipolar I disorder, moderate, current or most recent episode depressed, with psychotic features Cannabis dependence, continuous Cervical disc disorder with myelopathy of mid-cervical region Chronic neck pain Chronic post-traumatic stress disorder Chronic sinusitis Deviated septum Generalized anxiety disorder Head pain, chronic Headache Hypothyroidism (acquired) Nasal turbinate hypertrophy Neck pain, chronic Nicotine dependence, cigarettes, uncomplicated Spondylolisthesis, acquired Stage 2 moderate COPD by GOLD classification 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 [place], [place] Lumbar decompression S/P cholecystectomy S/P tonsillectomy Family History Father Cancer Schizophrenia Other COPD (chronic obstructive pulmonary disease) Social History Smoking and tobacco status: former smoker Smoking risk assessment/counseling performed?: No Alcohol intake: never Counseling given: No Counseling given: No Lives independently: Yes Household members: significant other and family Marital status: Current occupational status: unemployed History of recent travel: No Current gender identity: Female Female Reproductive History: Date of last menstrual period: 02/13/20 Spontaneous abortions: No Physical Exam Const: COMMON NORMALS: no acute distress, patient oriented x3 and healthy appearing HENMT: COMMON NORMALS: normocephalic and atraumatic HEAD & SCALP: normocephalic and atraumatic Eye: COMMON NORMALS: Equal, round and reactive pupils present and EOMs intact bilaterally PUPIL: Yes Equal, round and reactive pupils present Neck/C-Spine: COMMON NORMALS: full ROM and supple Chest: COMMONS NORMALS: normal inspection of the chest and normal palpation of entire chest wall Resp: COMMON NORMALS: normal respiratory effort, No retractions, No use of accessory muscles and clear to auscultation bilaterally AUSCULTATION: clear to auscultation bilaterally Cardio: COMMON NORMALS: regular rate, regular rhythm and No murmurs present (Cardio) RATE: regular rate RHYTHM: regular rhythm GI: COMMON NORMALS: Normal to inspection, nondistended, normoactive bowel sounds present, Soft to palpation and no masses PALPATION: Yes Soft to palpation OTHER: diffuse mild tenderness Extremity: COMMON NORMALS: normal to inspection and full ROM Neuro: COMMON NORMALS: patient oriented x3, moves all extremities and no focal motor deficits Psych: COMMON NORMALS: mental status grossly normal, Normal thought process present and cooperative THOUGHT PROCESS: Normal thought process present Skin: COMMON NORMALS: no rashes or lesions noted and no wounds GENERAL SKIN EXAM: no rashes or lesions noted Course Vital Signs: Vital signs: Vital Signs Temperature 98.0 F 11/30/21 15:31 Pulse Rate 111 H 11/30/21 15:31 Respiratory Rate 18 11/30/21 19:03 Blood Pressure 136/79 11/30/21 15:31 Pulse Oximetry 98 11/30/21 19:03 MDM - Abdominal Pain Medical Decision Making Patient presents with abdominal pain she does have a small fat-containing umbilical hernia her pain is much improved here no other findings on CT she is stable for discharge we will get her follow-up with surgery she is return if worsening she understands agrees to plan. Lab Data : 11/30/21 18:35 11/30/21 18:35 Labs/Radiology: Radiology Impressions Abdomen/Pelvis CT 11/30/21 18:52 IMPRESSION: 1. Fluid within the small bowel and colon without evidence of bowel wall thickening. This may reflect viral gastroenteritis in the appropriate clinical situation. 2. Small fat-containing umbilical hernia. No evidence for strangulation. 3. Incidental/nonacute findings are listed in the report. Chest X-Ray 11/30/21 18:52 IMPRESSION: 1. No acute cardiopulmonary process. 2. Incidental/nonacute findings are listed in the report. Laboratory Results WBC 8.8 10^3/uL (4.0-10.0) 11/30/21 18:35 RBC 5.22 10^6/uL (4.1-5.3) 11/30/21 18:35 Hgb 15.7 g/dL (11.5-15.3) H 11/30/21 18:35 Hct 47.3 % (37.0-47.0) H 11/30/21 18:35 MCV 90.6 fl (81-99) 11/30/21 18:35 MCH 30.1 pg (28.0-34.0) 11/30/21 18:35 MCHC 33.2 g/dL (30.0-36.0) 11/30/21 18:35 RDW 12.8 % (12.1-15.1) 11/30/21 18:35 Plt Count 352 10^3/cmm (130-400) 11/30/21 18:35 MPV 8.6 fL (7.4-10.4) 11/30/21 18:35 Neut % (Auto) 51.0 % 11/30/21 18:35 Lymph % (Auto) 37.8 % 11/30/21 18:35 [place] % (Auto) 8.6 % 11/30/21 18:35 Eos % (Auto) 1.7 % 11/30/21 18:35 Baso % (Auto) 0.6 % 11/30/21 18:35 Neut # (Auto) 4.51 10^3/uL (1.8-7.7) 11/30/21 18:35 Lymph # (Auto) 3.3 10^3/uL (0.8-4.8) 11/30/21 18:35 [place] # (Auto) 0.8 10^3/uL (0.2-0.9) 11/30/21 18:35 Eos # (Auto) 0.2 10^3/uL (0.0-0.8) 11/30/21 18:35 Baso # (Auto) 0.1 10^3/uL (0.0-0.1) 11/30/21 18:35 Nucleated RBC % (auto) 0 % 11/30/21 18:35 Nucleated RBCs # 0.0 /100WBC 11/30/21 18:35 Sodium 139 mmol/L (136-145) 11/30/21 18:35 Potassium 4.0 mmol/L (3.5-5.1) 11/30/21 18:35 Chloride 99 mmol/L (98-107) 11/30/21 18:35 Carbon Dioxide 26 mmol/L (22-29) 11/30/21 18:35 Anion Gap 18.0 (5-19) 11/30/21 18:35 BUN 9 mg/dL (6-20) 11/30/21 18:35 Creatinine 0.6 mg/dL (0.5-0.9) 11/30/21 18:35 GFR Calculation 106.3 mL/min (90-130) 11/30/21 18:35 Glucose 92 mg/dL (65-115) 11/30/21 18:35 Calculated Osmolality 286 mOsm/kg (285-295) 11/30/21 18:35 Lactic Acid 1.4 mmol/L (0.5-2.2) 11/30/21 19:05 Calcium 8.8 mg/dL (8.5-10.5) 11/30/21 18:35 Total Bilirubin 0.5 mg/dL (0.15-1.2) 11/30/21 18:35 AST 28 U/L (0-32) 11/30/21 18:35 ALT 26 U/L (0-33) 11/30/21 18:35 Alkaline Phosphatase 78 IU/L (35-105) 11/30/21 18:35 Total Protein 7.8 g/dL (6.6-8.7) 11/30/21 18:35 Albumin 5.0 g/dL (3.5-5.2) 11/30/21 18:35 Globulin 2.8 g/dL (1.3-4.6) 11/30/21 18:35 Lipase 39 U/L (13-60) 11/30/21 18:35 Urine Color Yellow (Yellow) 11/30/21 18:45 Urine Appearance Sl hazy (CLEAR) 11/30/21 18:45 Urine pH 5 (5-7) 11/30/21 18:45 Ur Specific [place] 1.020 (1.005-1.030) 11/30/21 18:45 Urine Protein Neg (Negative) 11/30/21 18:45 Urine Glucose (UA) Norm (Normal) 11/30/21 18:45 Urine Ketones 2+ (Negative) H 11/30/21 18:45 Urine Blood Neg (Negative) 11/30/21 18:45 Urine Nitrate Negative (Negative) 11/30/21 18:45 Urine Bilirubin 1+ (Negative) H 11/30/21 18:45 Urine Urobilinogen 1 mg/dL (Negative) H 11/30/21 18:45 Ur Leukocyte Esterase Negative (Negative) 11/30/21 18:45 Urine RBC 0-4 /hpf (0-2) H 11/30/21 18:45 Urine WBC 0-4 /hpf (0-5) H 11/30/21 18:45 Ur Squamous Epith Cells 25-40 /hpf (0-5) H 11/30/21 18:45 Amorphous Sediment 1+ /hpf 11/30/21 18:45 Urine Bacteria 3+ /hpf (NONE) H 11/30/21 18:45 Discharge Plan Discharge Patient Disposition: Home Clinical Impression: Abdominal pain Hernia, umbilical Qualifiers: Obstruction and gangrene presence: without obstruction or gangrene Qualified Code(s): K42.9 - Umbilical hernia without obstruction or gangrene Condition: Stable Prescriptions: New hydrocodone-acetaminophen 5-325 mg tablet 1 tab PO Q6H PRN (Reason: pain) Qty: 14 0RF ondansetron 4 mg tablet,disintegrating 4 mg PO Q6H PRN (Reason: nausea and vomiting) Qty: 14 0RF No Action albuterol sulfate [ProAir HFA] 90 mcg/actuation HFA aerosol inhaler 2 puff INHALATION Q6H PRN (Reason: Shortness Of Breath) 0RF albuterol sulfate 2.5 mg /3 mL (0.083 %) solution for nebulization 2.5 mg INHALATION Q4H PRN (Reason: Shortness Of Breath) 0RF bupropion HCl [Wellbutrin SR] 100 mg tablet sustained-release 12 hr 100 mg PO QAM 30 Days Qty: 30 2RF guaifenesin [Mucinex] 600 mg tablet extended release 12hr 600 mg PO Q12H PRN (Reason: Cold Symptoms) 0RF levothyroxine 100 mcg tablet 100 mcg PO DAILY 90 Days Qty: 90 1RF Bevespi Aerosphere 9-4.8 mcg HFA aerosol inhaler 2 puff inhalation BID 30 Days Qty: 10.7 4RF gabapentin 800 mg tablet 800 mg PO TID 0RF duloxetine 60 mg Capsule,Delayed Release(Dr/Ec) 60 mg PO DAILY 0RF Discharge Orders: Discharge ED (Routine); Ordered 11/30/21 Ordered By: Mansi Lowe Referrals: Jesús Gomez MD [Physician] - 1-3 days Discharge Diet: Advance as tolerated Discharge Activity: Resume usual activity Patient Instructions: Abdominal Pain (ED), Opioid Safety Coding Level of Care Code ED Gantry Rigger for Chg Fwd Exam Comprehensive
[2021-11-30 19:03] VITALS: RESP 18; O2SAT 98
[2021-11-30] MEDS: morphine 4 mg/mL SDV 1 mL IVP (19:03)
[2021-11-30] MEDS: ondansetron 2 mg/ML SDV 2 mL 4 MG IVP (19:03)
[2021-11-30 19:11] LABS: Alanine Aminotransferase 26 U/L (0-33); Alkaline Phosphatase 78 IU/L (35-105); Aspartate Amino Transferase 28 U/L (0-32); Blood Urea Nitrogen 9 mg/dL (6-20); Calcium 8.8 mg/dL (8.5-10.5); Carbon Dioxide 26 mmol/L (22-29); Chloride 99 mmol/L (98-107); Globulin 2.8 g/dL (1.3-4.6); Glomerular Filtration Rate 106.3 mL/min (90-130); Glucose 92 mg/dL (65-115); Lipase 39 U/L (13-60); Osmolality Calculated 286 mOsm/kg (285-295); Sodium 139 mmol/L (136-145); Total Bilirubin 0.5 mg/dL (0.15-1.2); Total Protein 7.8 g/dL (6.6-8.7)
[2021-11-30 19:24] LABS: Lactic Sepsis W/Reflex 1.4 mmol/L (0.5-2.2)
[2021-11-30 20:12] LABS: Add Urine Culture? No; Add Urine Microscopic? YES; Amorphous Sediment Urine 1+ /hpf; Bacteria Urine 3+ /hpf; Bilirubin Urine 1+ (Negative); Blood Urine Neg (Negative); Glucose Urine UA Norm (Normal); Ketones Urine 2+ (Negative); Leukocyte Esterase Urine Negative (Negative); Nitrate Urine Negative (Negative); Protein Urine Neg (Negative); RBC Urine 0-4 /hpf (0-2); Squamous Epithelial Cell Urine 25-40 /hpf (0-5); Urine Appearance SL Hazy (CLEAR); Urine Color Yellow (Yellow); Urobilinogen Urine 1 mg/dL (Negative); WBC Urine 0-4 /hpf (0-5); pH Urine 5 (5-7)
[2021-11-30] MEDS: diazePAM 2 mg Tablet PO (20:35)
[2021-11-30 20:45] VITALS: BP 101/71; PULSE 85; RESP 18; O2SAT 96
--- NOTE | 2021-12-01 10:34 | DCPLANNER ---
Addendum entered by Leatha Cortés 02/09/22 16:50: Patient had a follow up appointment scheduled for 12.08.21 with general surgery - patient did attend appointment. Addendum entered by Leatha Cortés 12/03/21 15:55: Patient has a follow up appointment scheduled for Wednesday, December 08, 2021 at 9:[address] Gomez. Clinic will call patient with appointment information. Original Note: cost and risk analysis manager had message to schedule a follow up appointment for patient with general surgery. cost and risk analysis manager sent patients information to the front office staff at general surgery. Patients information will be printed and reviewed. Clinic will call patient with appointment information.
== END 2021-11-30 20:40 | disposition home or self-care (01) ==
PROVIDERS: Physician Assistant; Emergency Provider Emergency Medicine
DX: K42.9 Umbilical hernia without obstruction or gangrene (principal)
CPT/HCPCS: 71045; 74176; 80053; 81001; 83605; 83690; 85025; 96374; 96375; 99284; J2270; J2405

== ENCOUNTER → 2021-12-08 09:16 | Outpatient (BNVA) | payer MEDICAID, SELFPAY | PROVIDERS: Visit Provider Surgery | DX: R10.12 Left upper quadrant pain (principal); K42.9 Umbilical hernia without obstruction or gangrene; R10.13 Epigastric pain; K59.09 Other constipation | CPT/HCPCS: 99204 ==

== ENCOUNTER → 2021-12-29 09:43 | Outpatient (BNVA) | payer MEDICAID, SELFPAY | PROVIDERS: Visit Provider Family Medicine | DX: M47.12 Other spondylosis with myelopathy, cervical region (principal); M47.22 Other spondylosis with radiculopathy, cervical region; F41.1 Generalized anxiety disorder; E03.9 Hypothyroidism, unspecified; J30.9 Allergic rhinitis, unspecified; J41.0 Simple chronic bronchitis; J30.1 Allergic rhinitis due to pollen; E89.0 Postprocedural hypothyroidism; N95.1 Menopausal and female climacteric states | CPT/HCPCS: 84439; 84443; 84481 ==

== ENCOUNTER → 2022-01-20 13:19 | Outpatient (BNVA) | payer MEDICAID, SELFPAY | PROVIDERS: Visit Provider Internal Medicine | DX: Z87.891 Personal history of nicotine dependence (principal); Z78.0 Asymptomatic menopausal state; E89.0 Postprocedural hypothyroidism; R61 Generalized hyperhidrosis | CPT/HCPCS: 99214 ==

== ENCOUNTER 2022-01-25 10:41 | Emergency (ER) | payer MEDICAID, SELFPAY ==
[2022-01-25 11:15] VITALS: BP 149/79; PULSE 88; RESP 14; TEMP 36.8; O2SAT 98; BMI 21.6
--- NOTE | 2022-01-25 11:28 | ECG_ITS ---
[facility] Test Date: 2022-01-25 Pat Name: Oksana Presley Department: Room: Gender: Female Ditcher Operator: : 1970 Requested By: Yury Chavez Order Number: [id number] Portia MD: Markus Oliver M.D. Measurements Intervals [place] Rate: 69 P: 86 TN: 144 QRS: 81 QRSD: 80 T: 74 QT: 378 QTc: 408 Interpretive Statements SINUS RHYTHM No previous ECG available for comparison Electronically Signed On 01-26-2022 0:48:11 CDT by Markus Oliver M.D. [email or web address]
--- NOTE | 2022-01-25 11:29 | ED_ITS ---
HPI - General Adult General: Chief complaint: Abdominal Pain Stated complaint: N/V hard stomach Time Seen by Provider: 01/25/22 11:23 History of Present Illness: Patient is a 51-year-old female history of cholecystectomy, hiatal hernia, GERD presenting to the emergency room with compl aints of midepigastric and right upper quadrant abdominal pain for the last 3 days. Patient tells me that this pain has been worsening over the last 3 days and associate with intermittent nausea without vomiting. Patient denies any diarrhea melena hematochezia. Patient has a chronic cough denies that it is getting worse over the last 3 months. Patient denies any fever/chills, history of kidney stone, or other prior abdominal surgery. Patient is due for outpatient surgery follow-up for umbilical hernia. Patient tells me that she has an EGD and colonoscopy scheduled for her GERD symptoms. Patient denies any chest pain, shortness breath, palpitation, light-headedness or cough. Onset:3 days ago Duration:3 days Location:home Severity:moderate Associated symptoms: Reports nausea; Deny chest pain, dyspnea, rash, palpitations or vomiting Review of Systems Const: Denies: fever(s) or chills Eyes: Denies: change in vision ENMT: Denies: mouth pain Card: Denies: chest pain or palpitations Resp: Denies: dyspnea or non-productive cough GI: Reports: abdominal pain (+midepigastric and RUQ abd pain) and nausea; Denies: vomiting or diarrhea : Denies: dysuria Musc: Denies: extremity pain Skin/Breast: Denies: rash or new lesions Neuro: Denies: weakness in extremities Psych: Reports: other (Normal mood) Romario/Lymph: Denies: easy bruising PFSH ED PFSH: Medical History Bipolar I disorder, moderate, current or most recent episode depressed, with psychotic features Cannabis dependence, continuous Cervical disc disorder with myelopathy of mid-cervical region Chronic post-traumatic stress disorder Chronic sinusitis Deviated septum Generalized anxiety disorder Head pain, chronic Headache Hypothyroidism (acquired) Nasal turbinate hypertrophy Neck pain, chronic Spondylolisthesis, acquired Stage 2 moderate COPD by GOLD classification Stenosis of cervical spine with myelopathy Vitamin D deficiency Surgical History H/O thyroidectomy Previous back surgery Unknown year. [place], [place] Lumbar decompression S/P cholecystectomy S/P tonsillectomy Family History Father Cancer Schizophrenia Other COPD (chronic obstructive pulmonary disease) Social History Smoking and tobacco status: former smoker Smoking risk assessment/counseling performed?: No Alcohol intake: never Counseling given: No Counseling given: No Lives independently: Yes Household members: significant other and family Marital status: Current occupational status: unemployed History of recent travel: No Current gender identity: Female Female Reproductive History: Date of last menstrual period: 02/13/20 Spontaneous abortions: No Physical Exam Const: COMMON NORMALS: alert HENMT: COMMON NORMALS: atraumatic HEAD & SCALP: atraumatic MOUTH: moist mucous membranes not abnormal Eye: COMMON NORMALS: EOMs intact bilaterally and conjunctivae normal CONJUNCTIVA: Yes conjunctivae normal Neck/C-Spine: COMMON NORMALS: full ROM and supple Resp: COMMON NORMALS: normal respiratory effort and clear to auscultation bilaterally AUSCULTATION: clear to auscultation bilaterally Cardio: COMMON NORMALS: regular rate RATE: regular rate GI: COMMON NORMALS: Soft to palpation and non-tender PALPATION: Yes Soft to palpation OTHER: +mild midepigastric and rUQ focal TTP. NO guarding rebound, guarding, rigidity. No CVA tenderness to percussion. Neg Ariza/Neg McBurney's point tenderness, no suprabupic tenderness to palpation. Extremity: COMMON NORMALS: full ROM Neuro: SENSORIUM/ORIENTATION: Yes alert MOTOR EXAM: No Abnormal motor strength present and Other motor observations present (no focal motor deficits) Psych: COMMON NORMALS: speech normal SPEECH: Yes normal speech MOOD & AFFECT: Yes euthymic mood Course Vital Signs: Vital signs: Vital Signs Temperature 98.2 F 01/25/22 11:15 Pulse Rate 82 01/25/22 14:38 Respiratory Rate 14 01/25/22 14:38 Blood Pressure 132/76 01/25/22 14:38 Pulse Oximetry 99 01/25/22 14:38 Oxygen Delivery Me thod 01/25/22 13:46 [facility] - General Adult Medical Decision Making 51-year-old female history of cholecystectomy, GERD, umbilical hernia presenting to the emergency room for evaluation of acute midepigastric and right upper upper abdominal pain. Patient has no Ariza sign, no guarding no rebound tenderness on exam. Patient is hemodynamically stable. Patient received NS, morphine, Zofran in the emergency room for symptoms of nausea and abdominal pain have improved. Work-up showed white count 7.9. Lab within normal limit. UA is negative for any acute finding. EKG is nonischemic, troponin within normal limit. Patient received GI cocktail reports feeling symptomatically improved. No suspicion for other acute intra-abdominal pathology including SBO, biliary pathology, appendicitis, diverticulitis, or other emergent condition requiring surgery. Santhosh wahl request for ultrasound to look for vaginal bleeding since patient tells me she has been postmenopausal. US showed no focal pathologies. I have given patient to follow-up primary care provider for further evaluation of vaginal bleeding. Rx tylenol PRN abd pain, maalox/pepcid PRN dyspepsia, and zofran PRN nausea/vomiting Disposition: Discharge. Patient counseled regarding diagnostic impression, treatment plan. Patient given ED strict return precautions to return for continuation, worsening, or development of new symptoms. Instructed to f/u w/ PCP regarding symptoms today. Patient verbalized understanding. Patient given strict return precautions for any worsening abdominal pain, nausea/vomiting, fever/chills, or any new concerning complaints. Lab Data : 01/25/22 11:55 01/25/22 11:55 Radiology Impressions Pelvis Ultrasound 01/25/22 13:02 IMPRESSION: 1. Examination was requested as transabdominal only. 2. Very limited evaluation of the uterus and endometrium without a distended urinary bladder transvaginal imaging. No abnormality identified. Laboratory Results WBC 7.9 10^3/uL (4.0-10.0) 01/25/22 11:55 RBC 4.31 10^6/uL (4.1-5.3) 01/25/22 11:55 Hgb 13.2 g/dL (11.5-15.3) 01/25/22 11:55 Hct 40.9 % (37.0-47.0) 01/25/22 11:55 MCV 94.9 fl (81-99) 01/25/22 11:55 MCH 30.6 pg (28.0-34.0) 01/25/22 11:55 MCHC 32.3 g/dL (30.0-36.0) 01/25/22 11:55 RDW 13.1 % (12.1-15.1) 01/25/22 11:55 Plt Count 331 10^3/cmm (130-400) 01/25/22 11:55 MPV 8.7 fL (7.4-10.4) 01/25/22 11:55 Neut % (Auto) 50.3 % 01/25/22 11:55 Lymph % (Auto) 36.7 % 01/25/22 11:55 Throckmorton % (Auto) 8.8 % 01/25/22 11:55 Eos % (Auto) 3.0 % 01/25/22 11:55 Baso % (Auto) 0.9 % 01/25/22 11:55 Neut # (Auto) 3.97 10^3/uL (1.8-7.7) 01/25/22 11:55 Lymph # (Auto) 2.9 10^3/uL (0.8-4.8) 01/25/22 11:55 Throckmorton # (Auto) 0.7 10^3/uL (0.2-0.9) 01/25/22 11:55 Eos # (Auto) 0.2 10^3/uL (0.0-0.8) 01/25/22 11:55 Baso # (Auto) 0.1 10^3/uL (0.0-0.1) 01/25/22 11:55 Nucleated RBC % (auto) 0 % 01/25/22 11:55 Nucleated RBCs # 0.0 /100WBC 01/25/22 11:55 Sodium 141 mmol/L (136-145) 01/25/22 11:55 Potassium 3.9 mmol/L (3.5-5.1) 01/25/22 11:55 Chloride 105 mmol/L (98-107) 01/25/22 11:55 Carbon Dioxide 29 mmol/L (22-29) 01/25/22 11:55 Anion Gap 10.9 (5-19) 01/25/22 11:55 BUN 10 mg/dL (6-20) 01/25/22 11:55 Creatinine 0.5 mg/dL (0.5-0.9) 01/25/22 11:55 GFR Calculation 131.1 mL/min (90-130) H 01/25/22 11:55 Glucose 84 mg/dL (65-115) 01/25/22 11:55 Calculated Osmolality 290 mOsm/kg (285-295) 01/25/22 11:55 Calcium 8.1 mg/dL (8.5-10.5) L 01/25/22 11:55 Total Bilirubin 0.2 mg/dL (0.15-1.2) 01/25/22 11:55 AST 18 U/L (0-32) 01/25/22 11:55 ALT 12 U/L (0-33) 01/25/22 11:55 Alkaline Phosphatase 69 IU/L (35-105) 01/25/22 11:55 Troponin T Gen 5 ng/L 8 ng/L (0-10) 01/25/22 11:55 Total Protein 6.9 g/dL (6.6-8.7) 01/25/22 11:55 Albumin 4.4 g/dL (3.5-5.2) 01/25/22 11:55 Globulin 2.5 g/dL (1.3-4.6) 01/25/22 11:55 Lipase 55 U/L (13-60) 01/25/22 11:55 Urine Color Yellow (Yellow) 01/25/22 12:30 Urine Appearance Clear (CLEAR) 01/25/22 12:30 Urine pH 8 (5-7) H 01/25/22 12:30 Ur Specific [place] 1.010 (1.005-1.030) 01/25/22 12:30 Urine Protein Neg (Negative) 01/25/22 12:30 Urine Glucose (UA) Norm (Normal) 01/25/22 12:30 Urine Ketones Negative (Negative) 01/25/22 12:30 Urine Blood 3+ (Negative) H 01/25/22 12:30 Urine Nitrate Negative (Negative) 01/25/22 12:30 Urine Bilirubin Neg (Negative) 01/25/22 12:30 Prot Sulfosalicylic Acd Negative (Negative) 01/25/22 12:30 Urine Urobilinogen Norm mg/dL (Negative) 01/25/22 12:30 Ur Leukocyte Esterase Negative (Negative) 01/25/22 12:30 Urine RBC 5-10 /hpf (0-2) H 01/25/22 12:30 Urine WBC None /hpf (0-5) 01/25/22 12:30 Ur Squamous Epith Cells Rare /hpf (0-5) 01/25/22 12:30 Amorphous Sediment Not Reportable 01/25/22 12:30 Urine Bacteria Trace /hpf (NONE) 01/25/22 12:30 Urine Mucus Trace /hpf 01/25/22 12:30 Urine HCG, Qual Negative (Negative) 01/25/22 12:30 SARS-CoV-2 Ag (Rapid) Negative (Negative) 01/25/22 11:55 Imaging Data Other Imaging: Radiologist's impression: [address] [address] Ultrasound Report Signed Patient: Oksana Presley Unit #: [id number] : 1970 Age/Sex: 51 / F ADM Date: 01/25/22 Loc: ER Room/Bed: Attending Dr: Ordering Provider/Ordering MD: Yury Chavez MD Date of Service: 01/25/22 Procedure(s): US pelvic complete* [id number] Accession Number(s): [id number] Report Number: [id number] WS: [id number] TRANSABDOMINAL PELVIC ULTRASOUND HISTORY: History of vaginal bleeding. COMPARISON: None available. Uterus: 5.8 cm x 4.1 cm x 3.6 cm. Nondistended urinary bladder. Uterus is anteverted. Poorly visualized uterus without transvaginal imaging or distended bladder. Endometrium: 0.9 cm. Poorly visualized. Right ovary: 2.6 cm x 2.3 cm x 2.6 cm; no solid or cystic mass. Small ovarian follicle. Normal vascularity. Left ovary: 1.8 cm x 1.8 cm x 1.2 cm; no solid or cystic mass. Normal vascularity. No free fluid in the cul-de-sac. US/US pelvic complete* [id number] IMPRESSION: ? 1.? Examination was requested as transabdominal only. 2.? Very limited evaluation of the uterus and endometrium without a distended urinary bladder transvaginal imaging. No abnormality identified. ? ? ? Dictated By: Tawnya Bocanegra DO Signed By: Tawnya Bocanegra DO Signed Date/Time: 01/25/221458 DD/ 56 Discharge Plan Discharge Patient Disposition: Home Clinical Impression: Abdominal pain, Nausea Condition: Stable Prescriptions: New famotidine [Pepcid] 20 mg tablet 20 mg PO BID PRN (Reason: abdominal pain) 10 Days Qty: 20 0RF Maalox Advanced 1,000-60 mg tablet,chewable 1 tab PO TID PRN (Reason: abdominal pain) 7 Days Qty: 21 0RF No Action baclofen 20 mg tablet 20 mg PO TID 30 Days Qty: 90 5RF duloxetine 60 mg capsule,delayed release(DR/EC) 60 mg PO DAILY 30 Days Qty: 30 5RF gabapentin 800 mg tablet 800 mg PO TID 30 Days Qty: 90 5RF Bevespi Aerosphere 9-4.8 mcg HFA aerosol inhaler 2 puff inhalation BID 30 Days Qty: 10.7 4RF guaifenesin [Mucinex] 600 mg tablet extended release 12hr 600 mg PO Q12H PRN (Reason: Cold Symptoms) 30 Days Qty: 60 5RF levothyroxine 100 mcg tablet 100 mcg PO DAILY 90 Days Qty: 90 1RF albuterol sulfate [ProAir HFA] 90 mcg/actuation HFA aerosol inhaler 2 puff INHALATION Q6H PRN (Reason: Shortness Of Breath) Qty: 8.5 5RF fluticasone propionate 50 mcg/actuation spray,suspension 1 spray intranasal Q12H Qty: 15.8 5RF Rx Instructions: administer into each nostril Discharge Orders: Discharge ED (Routine); Ordered 01/25/22 Ordered By: Yury Chavez Discharge Diet: Advance as tolerated Discharge Activity: Increase activity as tolerated Activity Restrictions/Additional Instructions: Please come back if you have any worsening abdominal pain, fever or chills, nausea or vomiting, diarrhea, blood in the stool, inability hold down liquid or solids, or any new concerning complaints. Coding Level of Care Code ED Floor Covering Layer for Betzyg Fwd Exam Comprehensive
[2022-01-25 12:04] VITALS: RESP 16
[2022-01-25] MEDS: ondansetron 2 mg/ML SDV 2 mL 4 MG IVP (12:04)
[2022-01-25] MEDS: morphine 4 mg/mL SDV 1 mL IVP (12:04)
[2022-01-25] MEDS: sodium chloride 0.9% 1,000 ML 999 ML IV (12:04)
[2022-01-25 12:07] LABS: Basophils # 0.1 10^3/uL (0.0-0.1); Basophils % 0.9 %; Eosinophils # 0.2 10^3/uL (0.0-0.8); Hematocrit 40.9 % (37.0-47.0); Hemoglobin 13.2 g/dL (11.5-15.3); Lymphocytes # 2.9 10^3/uL (0.8-4.8); Lymphocytes % 36.7 %; Mean Corpuscular HGB Conc 32.3 g/dL (30.0-36.0); Mean Corpuscular Hemoglobin 30.6 pg (28.0-34.0); Mean Corpuscular Volume 94.9 fl (81-99); Mean Platelet Volume 8.7 fL (7.4-10.4); Monocytes # 0.7 10^3/uL (0.2-0.9); Monocytes % 8.8 %; Neutrophils # 3.97 10^3/uL (1.8-7.7); Neutrophils % 50.3 %; Nucleated Red Blood Cells % 0 %; Platelet Count 331 10^3/cmm (130-400); Red Blood Count 4.31 10^6/uL (4.1-5.3); Red Cell Distribution Width 13.1 % (12.1-15.1); White Blood Count 7.9 10^3/uL (4.0-10.0)
[2022-01-25 12:16] VITALS: BP 95/71; PULSE 68; RESP 21; O2SAT 93
[2022-01-25 12:42] LABS: Alanine Aminotransferase 12 U/L (0-33); Albumin Level 4.4 g/dL (3.5-5.2); Alkaline Phosphatase 69 IU/L (35-105); Anion Gap 10.9 (5-19); Aspartate Amino Transferase 18 U/L (0-32); Blood Urea Nitrogen 10 mg/dL (6-20); Calcium 8.1 mg/dL (8.5-10.5); Carbon Dioxide 29 mmol/L (22-29); Chloride 105 mmol/L (98-107); Globulin 2.5 g/dL (1.3-4.6); Glomerular Filtration Rate 131.1 mL/min (90-130); Glucose 84 mg/dL (65-115); Lipase 55 U/L (13-60); Osmolality Calculated 290 mOsm/kg (285-295); Potassium 3.9 mmol/L (3.5-5.1); Sodium 141 mmol/L (136-145); Total Bilirubin 0.2 mg/dL (0.15-1.2); Total Protein 6.9 g/dL (6.6-8.7)
[2022-01-25 13:00] LABS: SARS Covid-2 Antigen Negative (Negative)
--- NOTE | 2022-01-25 13:02 | US_ITS ---
WS: [id number] TRANSABDOMINAL PELVIC ULTRASOUND HISTORY: History of vaginal bleeding. COMPARISON: None available. Uterus: 5.8 cm x 4.1 cm x 3.6 cm. Nondistended urinary bladder. Uterus is anteverted. Poorly visualiz ed uterus without transvaginal imaging or distended bladder. Endometrium: 0.9 cm. Poorly visualized. Right ovary: 2.6 cm x 2.3 cm x 2.6 cm; no solid or cystic mass. Small ovarian follicle. Normal vascul arity. Left ovary: 1.8 cm x 1.8 cm x 1.2 cm; no solid or cystic mass. Normal vascularity. No free fluid in the cul-de-sac. US/US pelvic complete* [id number] IMPRESSION: 1. Examination was requested as transabdominal only. 2. Very limited evaluation of the uterus and endometrium without a distended u rinary bladder transvaginal imaging. No abnormality identified.
[2022-01-25] MEDS: lidocaine 2% viscous 15 ML, aluminum-mag hydrox-simethicon 30 ML, sucralfate oral liq 1 GM PO (13:35)
[2022-01-25 13:36] LABS: Troponin T (5th) Once 8 ng/L (0-10)
[2022-01-25 13:46] VITALS: BP 96/64; PULSE 71; RESP 16; O2SAT 97
[2022-01-25 13:56] LABS: Urine Appearance Clear (CLEAR); Urine Color Yellow (Yellow); pH Urine 8 (5-7)
[2022-01-25 14:00] LABS: Add Urine Microscopic? YES; Bilirubin Urine Neg (Negative); Blood Urine 3+ (Negative); Glucose Urine UA Norm (Normal); Ketones Urine Negative (Negative); Leukocyte Esterase Urine Negative (Negative); Nitrate Urine Negative (Negative); Protein Urine Neg (Negative); Sulfosalicylic Acid Urine Negative (Negative); Urobilinogen Urine Norm (Negative)
[2022-01-25 14:01] LABS: Add Urine Culture? No; Bacteria Urine TRACE /hpf; Mucus Urine TRACE /hpf; Squamous Epithelial Cell Urine RARE /hpf (0-5)
[2022-01-25 14:38] VITALS: BP 132/76; PULSE 82; RESP 14; O2SAT 99
== END 2022-01-25 14:52 | disposition home or self-care (01) ==
PROVIDERS: Emergency Provider Emergency Medicine
DX: R10.9 Unspecified abdominal pain (principal); R11.0 Nausea; J44.9 Chronic obstructive pulmonary disease, unspecified; Z87.891 Personal history of nicotine dependence; Z20.822 Contact with and (suspected) exposure to COVID-19
CPT/HCPCS: 76856; 80053; 81001; 81025; 83690; 84484; 85025; 87426; 93005; 96374; 96375; 99285; J2270; J2405; J7030

== ENCOUNTER → 2022-05-17 07:59 | Outpatient (BNVA) | payer MEDICAID, SELFPAY | PROVIDERS: PCP Family Medicine; Visit Provider Internal Medicine | DX: Z78.0 Asymptomatic menopausal state (principal); E89.0 Postprocedural hypothyroidism; R61 Generalized hyperhidrosis; R23.2 Flushing; Z87.891 Personal history of nicotine dependence | CPT/HCPCS: 99214 ==

== ENCOUNTER → 2022-05-25 08:42 | Outpatient (BNVA) | payer MEDICAID, SELFPAY | PROVIDERS: PCP Family Medicine; Visit Provider Family Medicine | DX: M25.511 Pain in right shoulder (principal); E03.9 Hypothyroidism, unspecified; J44.9 Chronic obstructive pulmonary disease, unspecified; M47.12 Other spondylosis with myelopathy, cervical region; M47.22 Other spondylosis with radiculopathy, cervical region; J30.9 Allergic rhinitis, unspecified; F41.1 Generalized anxiety disorder; E89.0 Postprocedural hypothyroidism; Z13.220 Encounter for screening for lipoid disorders; Z13.6 Encounter for screening for cardiovascular disorders | CPT/HCPCS: 73030; 80061; 82672; 83001; 83002; 84146; 84443 ==

== ENCOUNTER → 2022-06-02 10:43 | Outpatient (BNVA) | payer MEDICAID, SELFPAY | PROVIDERS: PCP Family Medicine; Visit Provider Nurse Practitioner Family | DX: M25.511 Pain in right shoulder (principal) | CPT/HCPCS: 99214 ==

== ENCOUNTER → 2022-06-07 09:12 | Outpatient (BNVA) | payer MEDICAID, SELFPAY | PROVIDERS: PCP Family Medicine; Visit Provider Anesthesiology Pain Medicine | DX: G89.29 Other chronic pain (principal); M54.12 Radiculopathy, cervical region; M48.02 Spinal stenosis, cervical region; M50.020 Cervical disc disorder with myelopathy, mid-cervical region, unspecified level; M47.812 Spondylosis without myelopathy or radiculopathy, cervical region | CPT/HCPCS: 99214 ==

== ENCOUNTER 2022-06-30 11:21 | Outpatient (CLI) | payer MEDICAID, SELFPAY ==
--- NOTE | 2022-06-30 11:28 | MM_ITS ---
WS: [id number] DIAGNOSTIC BILATERAL DIGITAL BREAST TOMOSYNTHESIS MAMMOGRAPHY WITH CAD RIGHT breast ultrasound, limited HISTORY: N63.10 - Unspecified lump in the right breast COMPARISON: None available. TECHNIQUE: Bilateral craniocaudad, mediolateral oblique, and mediolateral views are submitted with to mosynthesis and SM. Spot compression RIGHT MLO and cc. Computer aided detection utilized. Breast composition: The breasts are heterogeneously dense, which may obscure small masses. Triangular marker is placed along the medial inferior RIGHT breast. No underlying mass or distortion is identif ied. The remaining breasts are dense but no distortion or mass. RIGHT breast ultrasound, limited. Ultrasound is directed to the 6:00, 2 cm from the nipple in the palpable region. There is a small clu ster of cysts. The largest diameter of 3 mm. No solid mass. MM/[place] [id number] IMPRESSION: BI-RADS: 2-Benign FOLLOW UP: 1 Year Follow-up Palpable abnormality corresponds to a very small cluster of cysts.
== END 2022-06-30 11:22 | disposition home or self-care (01) ==
PROVIDERS: PCP Family Medicine; Visit Provider Family Medicine
DX: N63.15 Unspecified lump in the right breast, overlapping quadrants (principal)
CPT/HCPCS: 76642; 77062; G0279

== ENCOUNTER 2022-09-07 14:27 | Outpatient (CLI) | payer MEDICAID, SELFPAY ==
--- NOTE | 2022-09-07 14:30 | MR_ITS ---
WS: [id number] EXAMINATION: MR shoulder RT wo con* [id number] ORDER DATE: 09/07/2022 2:40 PM COMPARISON: None. HISTORY: pain CONTRAST: None. TECHNIQUE: Axial T2 STAR, coronal proton density fat sat, sagittal T2 fat sat, sagittal proton densit y fat sat, axial proton density fat sat, coronal T2 fat sat, and coronal T1 performed. After contrast , axial T1 fat sat, coronal T1 fat sat, and sagittal T1 fat sat were performed. FINDINGS: Moderate degenerative arthritis AC joint with mild edema and fluid. Mild downsloping of the acromion. Slight subacromial spurring. Bone marrow edema involving the acromium and adjacent clavicle. Normal bone marrow signal in the humerus and glenoid. Normal supraspinatus and infraspinatus. Normal subscapularis. Normal teres minor. Biceps tendon appea rs intact within the bicipital groove. Intra-articular biceps tendon appears intact. Normal glenoid l abrum. Normal soft tissues. No other suspicious findings. MR/MR shoulder RT wo con* [id number] IMPRESSION: 1. Moderate degenerative arthritis AC joint with a small amount of edema and f luid. Associated synovial thickening. Slight impingement on the distal supraspi natus with slight subacromial spurring. 2. Normal rotator cuff. No acute tears. 3. Normal biceps tendon in the bicipital groove. 4. No other suspicious findings.
== END 2022-09-07 14:28 | disposition home or self-care (01) ==
PROVIDERS: PCP Family Medicine; Visit Provider Nurse Practitioner Family
DX: M19.011 Primary osteoarthritis, right shoulder (principal)
CPT/HCPCS: 73221

== ENCOUNTER 2022-11-04 10:38 | Day surgery (SDC) | payer MEDICAID, SELFPAY ==
[2022-11-03 16:37] VITALS: BMI 21.6
[2022-11-04] VITALS (7 sets, daily range): BP systolic 102–140; BP diastolic 64–89; PULSE 62–82; RESP 16–19; TEMP 36.1–36.7; O2SAT 96–100
[2022-11-04] MEDS: sodium chloride 0.9% 1,000 ML 30 ML IV (12:05)
--- NOTE | 2022-11-04 12:24 | W.PM.OPSUD ---
Surgery/Procedure H&P Update DATE OF PROCEDURE: November 04, 2022 DATE H&P PERFORMED: 10/14/22 CHANGES TO PREVIOUS DOCUMENTATION: none PREOP DIAGNOSIS: abnormal uterine bleeding PRIMARY INDICATION FOR PROCEDURE: pelvic pain, abnormal uterine bleeding PLANNED PROCEDURE: Operation Date: 11/04/22 12:25 Proposed Procedures p [Hysteroscopy with Myosure, endometrial sampling 06703, Possible endometrial polypectomy 38074,N95.0(Not Applicable) - Kerwin Medel MD s Possible endometrial polypectomy 82526(Not Applicable) - Kerwin Medel MD
--- NOTE | 2022-11-04 13:02 | P.ANESASSM_ITS ---
Pre-Anesthetic Assessment Height/Weight: Height 1.65 m Weight 58.967 kg Temp Pulse Resp BP Pulse Ox O2 Del Method 98.1 F 78 18 102/64 96 Room Air 11/04/22 11:41 11/04/22 11:41 11/04/22 11:41 11/04/22 11:41 11/04/22 11:41 11/04/22 11:42 Preop Diagnosis: abnormal uterine bleeding Operation Date: 11/04/22 12:25 Proposed Procedures p [Hysteroscopy with Myosure, endometrial sampling 23941, Possible endometrial polypectomy 96232,N95.0(Not Applicable) - Kerwin Medel MD s Possible endometrial polypectomy 62040(Not Applicable) - Kerwin Medel MD Familial anesthetic complications: None Was Beta Eyad taken within 24 hours: N/A Was Clonidine taken within 24 hours: N/A Last intake: Intake Last Liquid Date 11/03/22 Last Liquid Time 18:00 Last Solid Date 11/03/22 Last Solid Time 18:00 Social No alcohol and No tobacco Exam alert, oriented x 3, clear to auscultation bilaterally and regular rate & rhythm Airway Mallampati: Class II Dentition: chipped Pulmonary Chronic Obstructive Pulmonary Disease Metabolic Thyroid Disease Anesthetic Plan ASA status: 3 Anesthesia: General Risk of > 500 ml blood loss (7ml/kg in children): No Medications/Allergies Home Medications Medication Instructions Recorded Confirmed Last Taken Type diazepam 10 mg tablet 10 mg PO BID PRN Anxiety 05/05/22 11/03/22 11/03/22 History albuterol sulfate 90 mcg/actuation 2 puff inhalation Q6H PRN 05/25/22 11/03/22 11/02/22 Rx aerosol inhaler (ProAir HFA) Shortness Of Breath #8.5 grams duloxetine 60 mg capsule,delayed 60 mg PO DAILY 30 days #30 caps 05/25/22 11/03/22 11/03/22 Rx release fluticasone propionate 50 1 spray intranasal Q12H #15.8 mL 05/25/22 11/03/22 10/13/22 Rx mcg/actuation nasal spray,suspension levothyroxine 100 mcg tablet 100 mcg PO DAILY 90 days #90 tabs 05/25/22 11/03/22 11/04/22 Rx ibuprofen 200 mg capsule 200 mg PO Q6H PRN Pain 06/07/22 11/03/22 10/06/22 History estradiol 1 mg tablet (Estrace) 1 mg PO DAILY #30 tabs 09/28/22 11/03/22 11/03/22 Rx medroxyprogesterone 2.5 mg tablet 2.5 mg PO DAILY #30 tabs 09/28/22 11/03/22 11/03/22 Rx (Provera) olanzapine 5 mg tablet 10 mg PO BID 09/28/22 11/03/22 11/03/22 History Allergies Allergy/AdvReac Type Severity Reaction Status Date / Time pseudoephedrine Allergy Mild ADR-Vomitin Verified 10/13/22 13:38 [From Sudafed] g divalproex sodium AdvReac Severe psychiatric Verified 10/13/22 13:38 [From Depakote] issues Current Medications Generic Name Dose Route Start Last Admin Trade Name Freq PRN Reason Stop Dose Admin Sodium Chloride 1,000 mls @ 30 mls/hr 11/04/22 11:15 11/04/22 12:05 Sodium Chloride 0.9% IV 11/05/22 11:14 30 mls/hr .Q24H MIKE Administration PFSH Anesthesia Medical History Bipolar I disorder, moderate, current or most recent episode depressed, with psychotic features Cannabis dependence, continuous Cervical disc disorder with myelopathy of mid-cervical region Chronic post-traumatic stress disorder Chronic sinusitis Deviated septum Generalized anxiety disorder Head pain, chronic Headache Hypothyroidism (acquired) Nasal turbinate hypertrophy Neck pain, chronic Spondylolisthesis, acquired Stage 2 moderate COPD by GOLD classification Stenosis of cervical spine with myelopathy Vitamin D deficiency Surgical History H/O thyroidectomy Previous back surgery Unknown year. [place], [place] Lumbar decompression S/P cholecystectomy S/P tonsillectomy Family History Father Cancer Schizophrenia Grandmother Cancer Breast cancer Family/Other Cancer Cousin-Breast Cancer Other COPD (chronic obstructive pulmonary disease) Social History Substance/Drug Use: never Do you think of yourself as: Straight/Heterosexual Female Reproductive History Date of last menstrual period: 04/07/22 Spontaneous abortions: No Data Anesthesia Cardiac Studies: No Data to Display
--- NOTE | 2022-11-04 17:25 | ANE.PACU2 ---
Inpatient post-anesthesia follow up: Airway intact: Yes Vital signs: Temperature 98 F Pulse Rate 62 Respiratory Rate 16 Blood Pressure 128/86 Pulse Oximetry 96 Oxygen Delivery Me thod Room Air Oxygen Flow Rate 6 Fraction of Inspir ed Oxygen Hydration adequate: Yes Nausea and vomiting: No Pain level: 1 Mental status: Baseline
--- NOTE | 2022-11-04 23:46 | PM.OP ---
Operative Report Date of procedure: November 04, 2022 Pre-op diagnosis: Preop Diagnosis abnormal uterine bleeding Post-op diagnosis: same Post-op findings: uterus sounded to 8 cm No polyps or fibroids Minimal endometrial tissue Bleeding points seen throughout endometrium Procedure done: hysteroscopy curettage of uterus Specimens removed/disposition: endometrial curettings Surgeon: Kerwin Medel MD Anesthesia: MAC Estimated blood loss (mL): 0 Complications: none Condition: stable Disposition: PACU Brief History: 52 y.o. with abnormal uterine bleeding Procedure: Informed consent signed. Patient taken to the operating room. Anesthesia induced. Patient was placed in dorsolithotomy position, prepped and draped for hysteroscopy. A bivalve speculum was placed in the vagina. The anterior lip of the cervix was grasped with a sharp-toothed tenaculum. The cervix was serially dilated with Hegar dilators. . A hysteroscope was placed into the endometrial cavity. The endometrial cavity was seen to be normal. There were no polyps or fibroids. There was minimal endometrial tissue. Bleeding points can be seen throughout the endometrial surface. The hysteroscope was then removed. Endometrial curettage was done with a sharp curette. Endometrial curettings were sent to pathology. The sharp-toothed tenaculum was removed. There was no bleeding from the endometrial cavity or cervix. The patient was then placed supine and awakened and taken to the PACU. Postop condition: stable EBL: none Sponge and instruments counts were normal x 2 Complications: none
== END 2022-11-04 14:13 | disposition home or self-care (01) ==
PROVIDERS: PCP Family Medicine; Visit Provider Obstetrics & Gynecology
PROC: 0UDB8ZZ Extraction of Endometrium, Via Natural or Artificial Opening Endoscopic (ICD-10-PCS; CPT 58558; principal; 2022-11-04 12:15)
DX: N93.9 Abnormal uterine and vaginal bleeding, unspecified (principal); R10.2 Pelvic and perineal pain; J44.9 Chronic obstructive pulmonary disease, unspecified; E03.9 Hypothyroidism, unspecified; F41.1 Generalized anxiety disorder
CPT/HCPCS: 58558; 88305; J1100; J1885; J2250; J2405; J2704; J3010; J7030

== ENCOUNTER → 2023-04-20 09:17 | Outpatient (BNVA) | payer SELFPAY | PROVIDERS: PCP Family Medicine; Visit Provider Family Medicine | DX: E03.9 Hypothyroidism, unspecified (principal); Z78.0 Asymptomatic menopausal state; Z13.1 Encounter for screening for diabetes mellitus; Z51.81 Encounter for therapeutic drug level monitoring; Z13.220 Encounter for screening for lipoid disorders; Z13.6 Encounter for screening for cardiovascular disorders | CPT/HCPCS: 80053; 80061; 84443 ==

== ENCOUNTER → 2023-08-02 13:46 | Outpatient (BNVA) | payer SELFPAY | PROVIDERS: PCP Family Medicine; Visit Provider Family Medicine | DX: E89.0 Postprocedural hypothyroidism (principal); E03.9 Hypothyroidism, unspecified; F31.5 Bipolar disorder, current episode depressed, severe, with psychotic features; Z79.899 Other long term (current) drug therapy | CPT/HCPCS: 84439; 84443; 84481 ==

== ENCOUNTER → 2023-08-11 15:15 | Outpatient (BNVA) | payer SELFPAY | PROVIDERS: PCP Family Medicine; Visit Provider Family Medicine | DX: E89.0 Postprocedural hypothyroidism | CPT/HCPCS: 84439; 84443; 84481 ==

== ENCOUNTER → 2024-08-29 08:48 | Outpatient (BNVA) | payer SELFPAY | PROVIDERS: PCP Family Medicine; Visit Provider Family Medicine | DX: E03.9 Hypothyroidism, unspecified (principal); Z13.1 Encounter for screening for diabetes mellitus; Z13.220 Encounter for screening for lipoid disorders; Z13.6 Encounter for screening for cardiovascular disorders | CPT/HCPCS: 80053; 80061; 84439; 84443; 84481 ==

== ENCOUNTER → 2025-04-16 15:16 | Outpatient (BNVA) | payer BC, MEDICAID, SELFPAY | PROVIDERS: Family Provider Family Medicine; PCP Family Medicine; Visit Provider Obstetrics & Gynecology | DX: Z01.419 Encounter for gynecological examination (general) (routine) without abnormal findings (principal) | CPT/HCPCS: 87624 ==

== ENCOUNTER 2025-04-23 09:46 | Outpatient (CLI) | payer BC, MEDICAID, SELFPAY ==
--- NOTE | 2025-04-23 10:00 | MM_ITS ---
WS: [id number] BILATERAL 3D TOMOSYNTHESIS DIGITAL SCREENING MAMMOGRAPHY WITH CAD CLINICAL INFORMATION: SCREENING HISTORY: Screening mammogram. No current complaints. COMPARISON: 2022 TECHNIQUE: Bilateral CC and MLO views. FINDINGS: The breasts are composed of heterogeneous fibroglandular density tissue, which can limit the detection of small underlying mass lesions. No suspicious mass, asymmetry, calcifications, or architectural distortion. No evidence of malignancy. Lucent centered calcification RIGHT breast MM/MM scr tomosynthesis 13411 IMPRESSION: DENSITY: The breasts are heterogeneously dense, which may obscure small masses. BI-RADS: 2 - Benign FOLLOW UP: 1 Year Follow-up Recommend return to annual screening mammography.
== END 2025-04-23 09:47 | disposition home or self-care (01) ==
LOC: MOBLMAM 09:48
PROVIDERS: Family Provider Family Medicine; PCP Family Medicine; Visit Provider Family Medicine
DX: Z12.31 Encounter for screening mammogram for malignant neoplasm of breast (principal); R92.333 Mammographic heterogeneous density, bilateral breasts; R92.323 Mammographic fibroglandular density, bilateral breasts; R92.1 Mammographic calcification found on diagnostic imaging of breast
CPT/HCPCS: 77063; 77067